=== PATIENT | female | born 2000 | race Two or more races ===

== ENCOUNTER 2022-10-10 20:16 | Emergency (ER) | payer MEDICAID, OTHER ==
[~2022-10-10] VITALS: Ht 165.1 cm; Wt 59.4 kg
[2022-10-10 20:29] VITALS: BP 122/66
== END 2022-10-10 20:40 | disposition left against medical advice (07) ==
LOC: ER 20:16
DX: O46.91 Antepartum hemorrhage, unspecified, first trimester (principal); Z3A.01 Less than 8 weeks gestation of pregnancy; Z53.21 Procedure and treatment not carried out due to patient leaving prior to being seen by health care provider